=== PATIENT | female | born 1980 | race Caucasian/White ===

== ENCOUNTER 2016-11-26 21:28 | Emergency (ER) | payer BC ==
[2016-11-26 22:02] VITALS: BP 115/65
--- NOTE | 2016-11-26 22:40 | ED ---
Abdominal Pain/Female - HPI Summary HPI Summary: 36 yr old female with the complaint of upper abdominal pain. Onset two days ago associated with fever, chills, vomiting, diarrhea. She has pain that is 5/ 10. Non radiating. She has had daily diarrhea since saturday. She has had prior appendectomy. She has a family history of diverticulitis. - History of Current Complaint Chief Complaint: UCGI Stated Complaint: FEVER,VOMITING,DIARRHEA,CHILLS Time Seen by Provider: 11/26/16 22:31 Hx Last Menstrual Period: 11/21/16 Allergies/Adverse Reactions: Allergies Allergy/AdvReac Type Severity Reaction Status Date / Time No Known Allergies Allergy Verified 11/26/16 22:02 Home Medications: Home Medications Bismuth Subsalicylate [Pepto Bismol] 2 tab PO PRN 11/26/16 [History] PMH/Surg Hx/FS Hx/Imm Hx Endocrine/Hematology History: Denies: Hx Diabetes Respiratory History: Denies: Hx Asthma - Surgical History Surgery Procedure, Year, and Place: Appendectomy 1999 Infectious Disease History: Yes Infectious Disease History: Reports: History Other Infectious Disease - mennigitis as an infant Denies: Traveled Outside the [place] in Last 30 Days - Family History Known Family History: Positive: Hypertension, Other - diverticulitis - Social History Alcohol Use: Rare Substance Use Type: Reports: None Smoking Status (MU): Never Smoked Tobacco Review of Systems Positive: Fever, Chills Positive: Abdominal Pain, Vomiting, Diarrhea, Nausea All Other Systems Reviewed And Are Negative: Yes Physical Exam Triage Information Reviewed: Yes Vital Signs On Initial Exam: Initial Vitals Temp Pulse Resp BP Pulse Ox 98.6 F 79 16 115/65 100 11/26/16 21:55 11/26/16 21:55 11/26/16 21:55 11/26/16 21:55 11/26/16 21:55 Vital Signs Reviewed: Yes Appearance: Positive: Well-Appearing, No Pain Distress Eyes: Positive: Normal, EOMI ENT: Positive: Normal ENT inspection Neck: Positive: Supple Respiratory/Lung Sounds: Positive: Clear to Auscultation, Breath Sounds Present Cardiovascular: Positive: Normal, RRR. Negative: Murmur Abdomen Description: Positive: Other: - tender in the epigastric area Musculoskeletal: Positive: Normal, Strength/ROM Intact Neurological: Positive: Normal, Sensory/Motor Intact, Alert, Oriented to Person Place, Time, CN Intact II-III Diagnostics - Vital Signs Vital Signs Temp Pulse Resp BP Pulse Ox 11/26/16 21:55 98.6 F 79 16 115/65 100 - Laboratory Lab Statement: Any lab studies that have been ordered have been reviewed, and results considered in the medical decision making process. Abdominal Pain Fem Course/Dx - Course Course Of Treatment: 36 yr old with epigastric pain, vomiting and diarrhea. Signed out AMA. Recommended her to go to the ER for further evaluation. - Diagnoses Provider Diagnoses: Abdominal pain Discharge - Discharge Plan Condition: Good Disposition: AGAINST MEDICAL ADVICE
== END 2016-11-26 22:38 | disposition left against medical advice (07) ==
LOC: UCCORT 21:28
DX: R10.13 Epigastric pain (principal); R11.2 Nausea with vomiting, unspecified; R19.7 Diarrhea, unspecified
CPT/HCPCS: 99212; G0463

== ENCOUNTER 2018-05-26 20:11 | Emergency (ER) | payer BC ==
[2018-05-26 21:03] VITALS: BP 129/85
[2018-05-26] MEDS ORDERED: Ciprofloxacin TAB* 500 MG PO ONE (21:21)
--- NOTE | 2018-05-26 21:22 | UC ---
Complaint Female HPI - HPI Summary HPI Summary: noted dysuria, noted some frequency as well, denies flank pain, denies fever - History Of Current Complaint Chief Complaint: UCGU Stated Complaint: URINARY Time Seen by Provider: 05/26/18 21:10 Hx Obtained From: Patient Hx Last Menstrual Period: 05/08/18 ?: No Onset/Duration: Sudden Onset Timing: Lasting Hours Severity Initially: Mild Severity Currently: Mild Pain Intensity: 3 Character: Sharp Aggravating Factor(s): Urination - Allergies/Home Medications Allergies/Adverse Reactions: Allergies Allergy/AdvReac Type Severity Reaction Status Date / Time No Known Allergies Allergy Verified 05/26/18 20:59 PMH/Surg Hx/FS Hx/Imm Hx Previously Healthy: Yes - Surgical History Surgical History: Yes Surgery Procedure, Year, and Place: Appendectomy 1999 - Family History Known Family History: Positive: Hypertension, Other - diverticulitis - Social History Alcohol Use: None Substance Use Type: None Smoking Status (MU): Never Smoked Tobacco Review of Systems Constitutional: Negative Skin: Negative Eyes: Negative ENT: Negative Respiratory: Negative Cardiovascular: Negative Gastrointestinal: Negative Genitourinary: Dysuria, Frequency Motor: Negative Neurovascular: Negative Is Patient Immunocompromised?: No All Other Systems Reviewed And Are Negative: Yes Physical Exam Triage Information Reviewed: Yes Appearance: Well-Appearing Vital Signs: Initial Vital Signs Temp 36.8 C 05/26/18 20:59 Pulse 73 05/26/18 20:59 Resp 16 05/26/18 20:59 BP 129/85 05/26/18 20:59 Pulse Ox 100 05/26/18 20:59 Vital Signs Reviewed: Yes Eye Exam: Normal ENT Exam: Normal Abdominal Exam: Normal Complaint Female Dx - Differential Dx/Diagnosis Provider Diagnoses: UTI Discharge - Sign-Out/Discharge Documenting (check all that apply): Patient Departure All imaging exams completed and their final reports reviewed: No Studies - Discharge Plan Condition: Good Disposition: HOME Prescriptions: Ciprofloxacin HCl [Cipro 500 MG TAB] 500 mg PO BID #8 tab Patient Education Materials: Urinary Tract Infection in Women (ED) Referrals: Marcelo Falcon MD [Primary Care Provider] - - Billing Disposition and Condition Condition: GOOD Disposition: Home
== END 2018-05-26 21:47 | disposition home or self-care (01) ==
LOC: UCCORT 20:11
DX: N39.0 Urinary tract infection, site not specified (principal)
CPT/HCPCS: 81003; 99212; A9270-GY; G0463

== ENCOUNTER 2019-08-13 08:04 | Day surgery (SDC) | payer BC ==
[~2019-08-13 08:04] MED LIST: Acetaminophen TAB* 325 MG PO ONE; Buffered Lidocaine 1% SYRIN* 1 ML/SYRINGE INTRADERM ONE; HYDROmorphone INJ1* 1 MG/ML SYRINGE IV PRN; Lactated Ringers 1000 ML Bag* 1,000 ML IV SCH; Naloxone* 0.4 MG/ML 1 ML VIAL IV PRN; Ondansetron INJ* 2 MG/ML VIAL IV PRN; PROCHLORPERAZINE INJ 5 MG/ML 2 ML VIAL IV PRN; diPHENhydraMINE IV* 50 MG/ML 1 ml VIAL (BENADRYL) IV PRN; oxyCODONE TAB* 5 MG TAB PO PRN
[2019-08-13] MEDS ORDERED: Acetaminophen TAB* 325 MG ONE (08:36)
[2019-08-13] MEDS ORDERED: ceFAZolin 2 GM PREMIX in ORs 2 GM/50 ML BAG ONE (08:36)
[2019-08-13] MEDS ORDERED: Midazolam* 1 MG/ML 2 ML VIAL (2 MG) ONE (08:47)
[2019-08-13] MEDS ORDERED: Propofol* 500 MG/50 ML BTL ONE (08:48)
[2019-08-13] MEDS ORDERED: Bupivacaine 0.5%* 50 ML MDV VIAL ONE (08:50)
[2019-08-13] MEDS ORDERED: Dexamethasone IV* 4 MG/ML 1 ML (4 MG) ONE (08:50)
[2019-08-13] MEDS ORDERED: Lidocaine 1% INJ* 10 MG/ML 30 ML SDV ONE (08:50)
[2019-08-13] MEDS ORDERED: fentaNYL* 50 MCG/ML 2 ML VIAL (100 MCG VIAL) ONE (09:17)
[2019-08-13] MEDS ORDERED: Ketorolac INJ* 30 MG/ML 1 ML VIAL IV PRN (09:55)
[2019-08-13] MEDS ORDERED: HYDROmorphone INJ1* 1 MG/ML SYRINGE IV PRN (09:55)
[2019-08-13] MEDS ORDERED: Ketorolac INJ* 30 MG/ML 1 ML VIAL ONE (09:56)
[2019-08-13 10:48] VITALS: BP 107/85
--- NOTE | 2019-08-13 21:01 | OP ---
OPERATIVE REPORT: DATE OF OPERATION: 08/13/19 - OLIVIA DATE OF : 82 SURGEON: Tonio Cordero DPM WASH TANK TENDER: None. ANESTHESIOLOGIST: Kavya Fernandez MD ANESTHESIA: MAC. PRE-OP DIAGNOSIS: Painful soft tissue mass, medial right foot. POST-OP DIAGNOSIS: Painful soft tissue mass, medial right foot. SURGICAL PROCEDURE: Excision of soft tissue mass from medial right great toe joint. PATHOLOGY: Resected soft tissue mass. ANESTHESIA: MAC with local. HEMOSTASIS: Pneumatic ankle tourniquet. INDICATIONS: The patient with a slow growing painful subcutaneous mass at the medial aspect of the right great toe joint. She had it previously aspirated and it has returned and causes pain with shoe pressure and she opts for surgery at this time to remove this mass and to reduce pain when wearing shoes and with activity. DESCRIPTION OF PROCEDURE: The patient was brought to the operating room, placed in the operating table in supine position. The anesthesia department administered IV sedation and peripheral nerve block was performed about the right foot with a 1:1 mixture of 1% lidocaine plain and 0.5% Marcaine plain. The right foot was prepped and draped in the usual sterile manner. The right foot was then exsanguinated and pneumatic ankle tourniquet was inflated to 250 mmHg about a well-padded right ankle. Attention was directed to the medial aspect of the right great toe joint where a visible and palpable subcutaneous soft tissue mass was noted, approximately 1 cm in diameter. It was in very close proximity to the skin and it was determined to take a small portion of the skin wedge along with the cyst. Two semi-elliptical linearly oriented incisions were made encompassing the cyst, skin as well as the soft tissue mass , which was adherent to the skin. It was freed from surrounding soft tissue and deep attachments. Dissection was carried further deep and it was noted to be adherent to the fascia, but there was no visible or obvious breach in the joint capsule. More proximally, however, there was a portion of the abductor hallucis tendon where this likely was coming from and the tendon sheath as well as the mass was resected and sent to field as specimen. The surgical site was flushed with copious amounts of normal sterile saline. As inspected, there were no further visible portions of the soft tissue mass and the portion of the capsule just deep to the cyst was also excised and 4-0 Vicryl was used to reapproximate and secure deep fascia. Subcutaneous tissue was closed in layers with 4-0 Vicryl and skin was closed with 5-0 nylon. The incision was dressed with Xeroform gauze. Prior to this application, dexamethasone phosphate was infiltrated about the surgical site and a light sterile mildly compressive dressing was applied, secured with Coban wrap. The pneumatic ankle tourniquet was deflated about the right ankle and a prompt hyperemic response was noted about all 5 digits of the patient's right foot. Having appeared to have tolerated the procedures and anesthesia well, the patient was transported via cart from the operating room to recovery in satisfactory condition with capillary refill less than 3 seconds to all digits of the right foot. [id number]/[facility] #: [id number] MTDD
== END 2019-08-13 10:40 | disposition home or self-care (01) ==
LOC: OREAST 08:04
PROVIDERS: ATTEND Podiatrist Foot Surgery
DX: D23.71 Other benign neoplasm of skin of right lower limb, including hip (principal)
CPT/HCPCS: 81025; 88304; 88341; 88342; A9270-GY; J0690; J1100; J1885; J2250; J2704; J3010; J3490